=== PATIENT | female | born 1965 | race Caucasian/White ===

== ENCOUNTER 2018-01-16 17:12 | Emergency (ER) | payer SELFPAY ==
--- NOTE | 2018-01-16 18:22 | ED Physician Chart ---
ED Chief Complaint/HPI - Patient Information Date Seen:: 01/16/18 Time Seen:: 18:00 Chief Complaint:: Back Pain History of Present Illness:: onset x one hour [employer]ER of MS type sharp tail bone type back pain after an accidental slip and fall type injury one hour [employer]; pt denies LOC, ALOC, AMS, H/ As, neck pain N/V, decreased activity, visual or gait changes, paresthesias, weakness, dizziness, vertigo, cough, C/P, SOB, Abd. pain, Flank pain, A/N/V/D/C , fever, chills, or urinary s/s; pt's last tetanus shot: < 5 years; UTD; LNMP: 2 years ago; pt is post-menopausal x 2 years; pt denies ; pt is eating and urinating well; pt last urinated one hour [employer] Allergies:: Allergies Allergy/AdvReac Type Severity Reaction Status Date / Time No Known Allergies Allergy Verified 01/16/18 18:02 Vitals:: Vital Signs - 8 hr 01/16/18 18:02 Temp 98.4 F HR 104 RR 16 BP 152/99 Historian:: Patient Review:: Nurse's Note Reviewed ED Review of Systems - Review of Systems General/Constitutional: No fever, No chills, No weight loss, No weakness, No diaphoresis, No edema, No loss of appetite Skin: No skin lesions, No rash, No bruising Head: No headache, No light-headedness Eyes: No loss of vision, No pain, No diplopia ENT: No earache, No nasal drainage, No sore throat, No tinnitus Neck: No neck pain, No swelling, No thyromegaly, No stiffness, No mass noted Cardio Vascular: No chest pain, No palpitations, No PND, No orthopnea, No edema Pulmonary: No SOB, No cough, No sputum, No wheezing GI: No nausea, No vomiting, No diarrhea, No pain, No melena, No hematochezia, No constipation, No hematemesis G/U: No dysuria, No frequency, No hematuria, No nacturia Order Taker: No vaginal discharge, No abnormal vaginal bleed, No contraction Musculoskeletal: Bone or joint pain, Back pain, No muscle pain Endocrine: No polyuria, No polydipsia Psychiatric: No prior psych history, No depression, No anxiety, No suicidal ideation, No homicidal ideation, No auditory hallucination, No visual hallucination Hematopoietic: No bruising, No lymphadenopathy Allergic/Immuno: No urticaria, No angioedema Neurological: No syncope, No focal symptoms, No weakness, No paresthesia, No headache, No seizure, No dizziness, No confusion, No vertigo ED Past Medical History - Past Medical History Obtainable: Yes Past Medical History: No significant medical hx Family History: None Social History: Non Smoker, No Alcohol, No Drug Use, Surgical History: None Psychiatricy History: None Medication: Reviewed Family Medical History - Family Member Mother History Unknown: Yes ED Physical Exam - Physical Examination General/Constitutional: Awake, Well-developed, well-nourished, Alert, No distress, GCS 15, Non-toxic appearing, Ambulatory Head: Atraumatic Eyes: Lids, conjuctiva normal, PERRL, EOMI Other Eyes comments:: PERRLA; Fundi: benign; EOMs: WNL Skin: Nl inspection, No rash, No skin lesions, No ecchymosis, Well hydrated, No lymphadenopathy ENMT: External ears, nose nl, TM canals nl, Nasal exam nl, Lips, teeth, gums nl , Oropharynx nl, Tonsils nl Other ENMT comments:: TMJs: WNL Neck: Nontender, Full ROM w/o pain, No JVD, No nuchal rigidity, No bruit, No mass, No stridor Other Neck comments:: supple; no meningeal signs; no cervical tenderness; no bruits Respiratory: Nl effort/Exclusion, Clear to Auscultation, No Wheeze/Rhonchi/Rales Cardio Vascular: RRR, No murmur, gallop, rubs, NL S1 S2, Carotid/Femoral/Distal pulses equal bilaterally GI: No tenderness/rebounding/guarding, No organomegaly, No hernia, Normal BS's, Nondistended, No mass/bruits, No McBurney tenderness, Rectum exam nl Other GI comments:: no pulsatile masses : No CVA tenderness Extremities: No tenderness or effusion, Full ROM, normal strength in all extremities, No edema, Normal digits & nails Neuro/Psych: Alert/oriented, DTR's symmetric, Normal sensory exam, Normal motor strength, Judgement/insight normal, Mood normal, Normal gait, No focal deficits Other Neuro/Psych comments:: no focal signs Misc: Normal back, No paraspinal tenderness Other Misc comments:: + Coccygeal tenderness with no loss of ROMs; + Coccyx contusion; DTRs: 2+ bilaterally; Gait: WNL; good motor, tendon, and sensory functions; good NV functions ED Labs/Radiology/EKG Results - Radiology Results Comments:: + Coccyx Hairline Fracture ED Septic Shock - . Is Septic Shock (SBP<90, OR Lactate>4 mmol\L) present?: No - <6hrs of presentation: Vital Signs: Vital Signs - 8 hr 01/16/18 18:02 Temp 98.4 F HR 104 RR 16 BP 152/99 ED Reassessment (Disposition) - Reassessment Reassessment:: pt is asymptomatic upon discharge Reassessment Condition:: Improved - Diagnosis Diagnosis:: Dx: Back Pain; Back Injury; S/P Fall; Coccyx Bone Fracture; Sprains and Strains ; L-S Strain; Contusions - Aftercare/Follow up Instructions Aftercare/Follow-Up Instructions:: Counseled pt regarding lab results/diagnosis & need follow up, Refer to Discharge Instructions, Counseled pt & family regarding lab results/diagnosis & need follow up Medication Prescribed:: Rx: Tylenol #3: one tablet po tid with meals prn pain (#10); Ice/Heat to affected areas; - Patient Disposition Discharge/Transfer:: Home Condition at Disposition:: Stable (RTER prn if existing s/s reoccur and/or get worse and/or any other new s/s occur; X-Rays Instructions; ACIs given for all above Dx; Refer to Spinal Specialist/Orthopedist/Quality Technician MARIA ISABEL; F/U with PMD in one day or prn; RTER prn if concerned), Improved ED Discharge Plan - Patient Disposition Admit/Discharge/Transfer: PT DISCHARGED HOME Condition at Disposition: Improved Instructions: Tailbone Injury, [id number] Additional Instructions: take medication as prescribed. follow up with primary doctor in AM. Forms: Work Release Form
--- NOTE | 2018-01-17 09:48 | Diagnostic Imaging Report ---
Sacrococcyx 2 views Indication: Tailbone pain Comparison: none Findings: There are radiopaque densities projecting along the lower pelvis on the frontal view which appear to be external material is this is not seen on remaining views. Nonspecific 1 cm calcification left pelvis is noted. Mild degenerative changes of the SI joints are noted. There is slight angulation of the sacrococcygeal region which is probably chronic. There is lucency seen along the right lower sacral region. Distal fecal impaction is noted. Impression: There is lucency seen along the right lower sacral region, probably projectional. A nondisplaced fracture is considered less likely. If necessary CT follow-up may be obtained. Slight angulation of the sacrococcygeal region which probably chronic. Distal fecal impaction. In the setting of trauma, if clinical symptoms persist and there is continued concern for an occult fracture, follow up exams in 5-7 days is suggested.
== END 2018-01-16 19:30 | disposition home or self-care (01) ==
LOC: ER 17:12
DX: S32.2XXA Fracture of coccyx, initial encounter for closed fracture (principal); S33.9XXA Sprain of unspecified parts of lumbar spine and pelvis, initial encounter; X58.XXXA Exposure to other specified factors, initial encounter; Z91.81 History of falling; Y93.89 Activity, other specified; Y92.89 Other specified places as the place of occurrence of the external cause; Y99.8 Other external cause status
CPT/HCPCS: 99284; 96372; 72220; J1885; Z7502